=== PATIENT | female | born 1970 | race Caucasian/White ===

== ENCOUNTER 2022-12-23 07:53 | Outpatient (CLI) | payer OTHER, SELFPAY | END 2022-12-23 07:54 | disposition home or self-care (01) | PROVIDERS: PCP Family Medicine; Visit Provider Physician Assistant Surgical | DX: S71.101A Unspecified open wound, right thigh, initial encounter (principal) | CPT/HCPCS: 11042; 99203 ==

== ENCOUNTER 2022-12-30 08:00 | Outpatient (CLI) | payer OTHER, SELFPAY | END 2022-12-30 08:01 | disposition home or self-care (01) | LOC: WOUND 08:00 | PROVIDERS: PCP Family Medicine; Visit Provider Surgery | DX: S71.101A Unspecified open wound, right thigh, initial encounter (principal) | CPT/HCPCS: 97597 ==

== ENCOUNTER 2023-01-06 07:58 | Outpatient (CLI) | payer OTHER, SELFPAY | END 2023-01-06 07:59 | disposition home or self-care (01) | LOC: WOUND 07:58 | PROVIDERS: PCP Family Medicine; Visit Provider Surgery | DX: S81.801A Unspecified open wound, right lower leg, initial encounter (principal) | CPT/HCPCS: 97597 ==

== ENCOUNTER 2023-01-13 08:00 | Outpatient (CLI) | payer OTHER, SELFPAY | END 2023-01-13 08:01 | disposition home or self-care (01) | LOC: WOUND 08:00 | PROVIDERS: PCP Family Medicine; Visit Provider Surgery | DX: S71.101A Unspecified open wound, right thigh, initial encounter (principal) | CPT/HCPCS: 97597 ==